=== PATIENT | male | born 1940 | race Caucasian/White ===

== ENCOUNTER 2023-01-25 15:30 | Outpatient (RCR) | payer MEDICARE ==
[~2023-01-25 15:30] MED LIST: ELIQUIS 5MG PO; LIPITOR20 MG PO; PRINZIDE 12.5 M1 TAB PO
== END 2023-01-26 | disposition home or self-care (01) ==
LOC: COL.CR
DX: Z48.812 Encounter for surgical aftercare following surgery on the circulatory system (principal); Z95.2 Presence of prosthetic heart valve

== ENCOUNTER 2024-02-28 13:20 | Inpatient (IN) | payer MEDICARE ==
[~2024-02-28] VITALS: Ht 172.7 cm; Wt 100.0 kg
[2024-02-28] MEDS ORDERED: LR 1,000 ML IV ONE (14:00)
[2024-02-28] MEDS ORDERED: Ondansetron 4 MG/2 ML VIAL IV ONE (14:00)
[2024-02-28 14:12] LABS: BASO % 0.3 % (0.0-2.0); EOS # 0.2 K/mm3 (0.0-0.7); EOS % 2.5 % (0.0-4.0); GRAN % 66.9 % (42.2-75.2); LYMPH # 1.3 K/mm3 (1.2-3.4); LYMPH % 20.9 % (20.0-51.0); MEAN CELL VOLUME 92 fl (80.0-100.0); MEAN CORPUSCULAR HEMOGLOBIN 31 pg (27-31); MEAN CORPUSCULAR HGB CONC 33 g/dl (33.0-37.0); MEAN PLATELET VOLUME 9.1 fl (7.4-10.4); MONO # 0.6 K/mm3 (0.1-0.6); MONO % 9.2 % (1.7-9.3); PLATELET COUNT 135 K/mm3 (130-400); RED BLOOD COUNT 3.91 M/mm3 (4.20-5.60); REDCELL DISTRIBUTION WIDTH-CV 13.1 % (11.5-14.5)
[2024-02-28 14:37] LABS: ALBUMIN 3.7 g/dL (3.4-4.8); BILIRUBIN,TOTAL 0.7 mg/dL (0.2-1.2); C-REACTIVE PROTEIN 0.05 mg/dL (0.00-0.50); CALCIUM 8.5 mg/dL (8.4-10.2); CREATININE, serum 0.84 mg/dL (0.72-1.25); POTASSIUM 3.5 mEq/L (3.5-4.5); TOTAL PROTEIN 6.1 g/dl (6.2-8.1)
[2024-02-28] MEDS ORDERED: Pantoprazole 40 MG in NS 10 ML IV ONE (15:00)
[2024-02-28] MEDS ORDERED: NS 1,000 ML IV ONE (15:15)
[2024-02-28] MEDS ORDERED: Iohexol 300 - 100 ML VIAL IV ONE (15:22)
[2024-02-28] MEDS ORDERED: NS 100 ML IV SCH (15:23)
[2024-02-28 16:03] LABS: URINE APPEARANCE CLOUDY (CLEAR/HAZY); URINE BLOOD 3+ (NEGATIVE); URINE COLOR RED (YELLOW); URINE GLUCOSE NEGATIVE (NEGATIVE); URINE KETONE NEGATIVE (NEGATIVE); URINE NITRATE NEGATIVE (NEGATIVE); URINE PROTEIN(semi-quant) 3+ (NEGATIVE); URINE UROBILINOGEN 0.2 E.U/dL (0.2-1.0)
[2024-02-28 16:11] LABS: COLLECTION METHOD CLEAN CATCH
[2024-02-28 16:12] LABS: SQUAMOUS EPITHELIAL 0-2 /hpf (0-10); URINE BACTERIA MODERATE /hpf (NONE SEEN); URINE RBC >50 /hpf (0-2)
[2024-02-28] MEDS ORDERED: ELIQUIS 5MG PO (16:33)
[2024-02-28] MEDS ORDERED: LEXAPRO 10MG10 MG PO (16:34)
[2024-02-28] MEDS ORDERED: LASIX 40MG TABL40 MG PO (16:34)
[2024-02-28] MEDS ORDERED: NATURE'S BLEND M3 MG PO (16:35)
[2024-02-28] MEDS ORDERED: Ondansetron 4 MG/2 ML VIAL IV PRN (16:45)
[2024-02-28] MEDS ORDERED: Acetaminophen 325 MG TAB PO PRN (16:45)
[2024-02-28] MEDS ORDERED: cefTRIAXone 1 G in Water For Injection,Sterile 10 ML IV SCH (17:00)
--- NOTE | 2024-02-28 17:40 | NUR ---
Pt arrived to room 327 from ED. Pt and family oriented to room. Completed Admissin intake and Med Rec. Pt is A&Ox4. VVS. S1S2 on tele. Clear lungs on RA. ABD round, soft, non-tender with audible bowel sounds. Pt denies pain, n/v, headache, dizziness. Pt reports hematuria and blood in stool. BLE edema, and reddened. No pain. Mepilex pad on L upper arm - abraision. No further skin integrity concerns. INT 18G L forearm. No further needs at this time. Call light in reach.
--- NOTE | 2024-02-28 17:40 | NUR ---
Pt transferred to room from ER via WC. Pt's daughter in room. A&Ox4. [place]. VSS. S1S2 on tele - paced. Clear lungs on RA. ABD round, soft, non-tender with audible bowel sounds. Palpble pulses in all extremiteis. BLE edema +1, redened. Abraision on L arm - bandaid. INT to L forearm, patent, no issues. Pt denies pain, nausea, headahce, dizziness. Call light in reach.
[2024-02-28 18:14] VITALS: BP 115/53; PULSE 63; TEMP 98
[2024-02-28 18:32] VITALS: BP_SYST 115
[2024-02-28 19:37] VITALS: BP 123/58; PULSE 66; TEMP 97.5
[2024-02-28] MEDS ORDERED: Melatonin 3 MG TAB PO SCH (21:00)
[2024-02-28 21:07] VITALS: BP_SYST 123
--- NOTE | 2024-02-28 21:07 | NUR ---
Patient resting in bed. Denies any pain or needs at this time. Assessment complete. IV in left forearm flushes easily without complications. Call light and personal items in reach. Bed in low position.
[2024-02-28 21:48] LABS: BASO % 0.2 % (0.0-2.0); EOS # 0.2 K/mm3 (0.0-0.7); EOS % 2.8 % (0.0-4.0); GRAN # 3.9 K/mm3 (1.4-6.5); GRAN % 68.3 % (42.2-75.2); HEMOGLOBIN 11.1 g/dl (13.5-18.0); LYMPH # 1.1 K/mm3 (1.2-3.4); LYMPH % 19.2 % (20.0-51.0); MEAN CELL VOLUME 94 fl (80.0-100.0); MEAN CORPUSCULAR HEMOGLOBIN 31 pg (27-31); MEAN CORPUSCULAR HGB CONC 33 g/dl (33.0-37.0); MEAN PLATELET VOLUME 9.2 fl (7.4-10.4); MONO # 0.5 K/mm3 (0.1-0.6); MONO % 9.3 % (1.7-9.3); PLATELET COUNT 118 K/mm3 (130-400); RED BLOOD COUNT 3.61 M/mm3 (4.20-5.60); REDCELL DISTRIBUTION WIDTH-CV 13.2 % (11.5-14.5)
[2024-02-28 21:50] LABS: HEMATOCRIT 33.9 % (42.0-52.0)
[2024-02-28 23:40] VITALS: BP 100/63; PULSE 60; TEMP 98.4
[2024-02-29] VITALS (12 sets, daily range): BP systolic 98–124; BP diastolic 51–69; PULSE 47–78; TEMP 97.8–98
[2024-02-29] MEDS ORDERED: NS 500 ML IV ONE (05:30)
--- NOTE | 2024-02-29 06:00 | NUR ---
Hospitalist Dewey called at 0516 and notified patients blood pressue has been steadily dropping over night and ahd recieved 2 IV bolus before coming to the floor. Last BP was 98/51. Recieved orders for 500mL fluid bolus. Patient resting in bed with no complaints. No other changes over night other than BP. Patient continues to be able to void.
[2024-02-29 06:21] LABS: BASO % 0.2 % (0.0-2.0); EOS # 0.2 K/mm3 (0.0-0.7); GRAN # 3.5 K/mm3 (1.4-6.5); GRAN % 66.8 % (42.2-75.2); LYMPH # 1.1 K/mm3 (1.2-3.4); LYMPH % 20.7 % (20.0-51.0); MEAN CELL VOLUME 93 fl (80.0-100.0); MEAN CORPUSCULAR HEMOGLOBIN 31 pg (27-31); MEAN CORPUSCULAR HGB CONC 34 g/dl (33.0-37.0); MEAN PLATELET VOLUME 9.2 fl (7.4-10.4); MONO # 0.5 K/mm3 (0.1-0.6); MONO % 9.1 % (1.7-9.3); PLATELET COUNT 110 K/mm3 (130-400); RED BLOOD COUNT 3.53 M/mm3 (4.20-5.60); REDCELL DISTRIBUTION WIDTH-CV 13.3 % (11.5-14.5)
[2024-02-29 06:27] LABS: HEMATOCRIT 32.8 % (42.0-52.0)
[2024-02-29 06:39] LABS: CREATININE, serum 0.75 mg/dL (0.72-1.25); POTASSIUM 3.8 mEq/L (3.5-4.5)
--- NOTE | 2024-02-29 06:40 | NUR ---
Pt resting in bed. Fluid bolus continues to run. No Pt needs at this time. Call light in reach.
--- NOTE | 2024-02-29 06:50 | NUR ---
Fluid bolus completed. BP: 121/51 (supine). Pt denies needs at this time. Call light in reach.
--- NOTE | 2024-02-29 08:40 | NUR ---
Pt called and stated he needed to urinate. Pt stood at side of bed and used urinal. 400cc of clear, yellow urine. Pt denied pain while urinating. No issues urinating. Pt ambulated to chair. A&O4. VSS. S1S2. BPs were in 90s overnight. Seem to improve after 500 cc bolus. Clear lungs on RA. ABD round, soft, non-tender with audible bowel sounds. Palpable pulses in all extremities with 4/5 strength. Pt denies pain, n/v, headache, dizziness. Changed linens on bed. IV in L forearm patent, no issues, INT. Pt ambulated back to bed for ECHO. Call light in reach.
[2024-02-29] MEDS ORDERED: Escitalopram 10 MG TAB PO SCH (09:00)
[2024-02-29] MEDS ORDERED: Atorvastatin 20 MG TAB PO SCH (09:00)
[2024-02-29] MEDS ORDERED: Pantoprazole 40 MG in NS 10 ML IV SCH (09:00)
[2024-02-29] MEDS ORDERED: Furosemide 40 MG/4 ML VIAL IV ONE (09:30)
--- NOTE | 2024-02-29 11:47 | NUR ---
Pt has urinated 3 times since IV lasix. Clear, light yellow urine. No blood or clots. Pt's states that he has not had his Eliquis since Tuesday (02/21). No further needs. Call light in reach and chair alarm on.
--- NOTE | 2024-02-29 13:26 | NUR ---
Supervisor Throwing Department met with patient to discuss discharge planning. Patient lives in [place] with his , Kierra (ph#[phone]) and their daughter, Paulette and her family. Patient sees Dr. Ernst for primary care and could not immediately recall the name of his pharmacy. Patient reported he does not use any DME and is independent with [facility]. Patient stated he has no DPOA-HC and is not interested in completing one at this time. Patient plans to return home at time of discharge. SW discussed OT's recommendation for Home Health and patient was unsure about this. SW contacted patient's , Kierra to discuss discharge plan and recommendation for . Kierra is agreeable to this recommendation and stated they have worked with [facility] before. JENNIFER faxed referral to [facility] for review. Discharge Plan: Home with [facility]
--- NOTE | 2024-02-29 17:14 | NUR ---
report received from AGUSTINA Cabrera at 1500, care assumed at this time. pt sitting up to chair alert and oriented x4 with at bedside. and pt with questions about care plan, awaiting Evangilidis visit at this time. pt transfer into bed x1 assist. denies pain at this time. fall precautions in place, call light within reach. will continue to monitor.
--- NOTE | 2024-02-29 17:48 | NUR ---
1735- Dr. Murrell in to see patient, spoke with Kierra over the phone, decision to move forward with bedside cystoscopy, pt aware with no further needs, questions, or concerns at this time, consent signed.
[2024-02-29] MEDS ORDERED: Lidocaine 2% (20 MG/ML) 20 ML UROJET MM ONE (18:01)
--- NOTE | 2024-02-29 22:36 | NUR ---
patient lying in bed, alert and oriented x4. denies chest pain and shortness of breath. IV in LF is patent, site is CDI. MARBELLA abrasion with dressing, BLE swelling with redness and dry flaky skin, both CDI. pt with continued hematuria with small clots noted. pt has no further needs, questions, or concerns at this time. fall precautions in place, call light within reach. will continue to monitor.
[2024-03-01] VITALS (13 sets, daily range): BP systolic 114–150; BP diastolic 61–84; PULSE 52–79; TEMP 97.5–98.3
[2024-03-01 06:34] LABS: BASO % 0.2 % (0.0-2.0); EOS # 0.2 K/mm3 (0.0-0.7); EOS % 2.9 % (0.0-4.0); GRAN # 3.5 K/mm3 (1.4-6.5); GRAN % 67.4 % (42.2-75.2); HEMOGLOBIN 11.5 g/dl (13.5-18.0); LYMPH # 1.1 K/mm3 (1.2-3.4); LYMPH % 20.8 % (20.0-51.0); MEAN CELL VOLUME 93 fl (80.0-100.0); MEAN CORPUSCULAR HEMOGLOBIN 31 pg (27-31); MEAN CORPUSCULAR HGB CONC 34 g/dl (33.0-37.0); MEAN PLATELET VOLUME 9.2 fl (7.4-10.4); MONO # 0.4 K/mm3 (0.1-0.6); MONO % 8.5 % (1.7-9.3); PLATELET COUNT 102 K/mm3 (130-400); RED BLOOD COUNT 3.69 M/mm3 (4.20-5.60); REDCELL DISTRIBUTION WIDTH-CV 13.3 % (11.5-14.5)
[2024-03-01 06:36] LABS: HEMATOCRIT 34.3 % (42.0-52.0)
[2024-03-01 06:43] LABS: CALCIUM 8.2 mg/dL (8.4-10.2); CREATININE, serum 0.73 mg/dL (0.72-1.25); POTASSIUM 3.7 mEq/L (3.5-4.5)
--- NOTE | 2024-03-01 11:06 | NUR ---
PT RESTING IN BED, ALERT AND ORIENTEDX3. NO COMPLAINTS OF PAIN AT THIS TIME. PT REPORTS THAT HE HAS NOT HAD BLOODY URINE TODAY. ASSESSED AND GAVE MORNING MEDS. IS AT BEDSIDE. TALKED TO ABOUT PLAN OF CARE. FOUDN SKIN TEAR ON PT RIGHT CALF. PUT MEPILEX ON IT. PT LOWER LEGS HAVE +1 EDEMA. NO OTHER COMPLAINTS AT THIS TIME. CALL LIGHT WITHIN REACH.
--- NOTE | 2024-03-01 11:27 | NUR ---
PT HAD 350 ML OUT OF HEMATURIA. PT STATES THERE IS NO PAIN WHILE URINATING.
[2024-03-01] MEDS ORDERED: Furosemide 100 MG/10 ML VIAL IV ONE (12:15)
--- NOTE | 2024-03-01 16:37 | NUR ---
PT HAS VOIDED MULTIPLE TIMES TODAY. URINE IS LIGHT PINK NOW.
[2024-03-02 00:17] VITALS: BP_SYST 150
--- NOTE | 2024-03-02 01:09 | NUR ---
PT VOIDED 400 ML DARK TEA COLORED URINE, NO CLOTS PRESENT
[2024-03-02 03:33] VITALS: BP 137/77; PULSE 70; TEMP 97.5
[2024-03-02 03:53] VITALS: BP_SYST 137
[2024-03-02 06:19] LABS: BASO % 0.2 % (0.0-2.0); EOS # 0.2 K/mm3 (0.0-0.7); EOS % 3.4 % (0.0-4.0); GRAN # 3.4 K/mm3 (1.4-6.5); GRAN % 67.1 % (42.2-75.2); HEMOGLOBIN 11.7 g/dl (13.5-18.0); LYMPH % 20.6 % (20.0-51.0); MEAN CELL VOLUME 92 fl (80.0-100.0); MEAN CORPUSCULAR HEMOGLOBIN 30 pg (27-31); MEAN CORPUSCULAR HGB CONC 33 g/dl (33.0-37.0); MEAN PLATELET VOLUME 9.1 fl (7.4-10.4); MONO # 0.4 K/mm3 (0.1-0.6); MONO % 8.5 % (1.7-9.3); PLATELET COUNT 118 K/mm3 (130-400); RED BLOOD COUNT 3.88 M/mm3 (4.20-5.60); REDCELL DISTRIBUTION WIDTH-CV 13.5 % (11.5-14.5)
[2024-03-02 06:23] LABS: HEMATOCRIT 35.7 % (42.0-52.0)
[2024-03-02 06:39] LABS: CALCIUM 8.4 mg/dL (8.4-10.2); CREATININE, serum 0.75 mg/dL (0.72-1.25); POTASSIUM 3.7 mEq/L (3.5-4.5)
[2024-03-02 08:00] VITALS: BP 139/85; PULSE 86; TEMP 97.9
--- NOTE | 2024-03-02 08:00 | NUR ---
PATIENT IS ORIENTED X2, NOTED OCCATIONAL CONFUSION/FORGETFULNESS. PATIENT HAS HX OF DEMENTIA AND LIVES AT HOME WITH . VSS. NO COMPLAINTS OF PAIN OR NAUSEA. LEFT FORARM IV TO INT. GAVE AM MEDS. DC'D IV SITE DUE TO PENDING DISCHARGE. PATIENT IS EAT/DRINK/VOIDING SUFFICENT AMOUNTS. URINE IS CEM WITH NO CLOTS. HEAD TO TOE ASSESSMENT COMPLETE. SCD'S TO BLE. CALL LIGHT IN REACH. BED ALARM ON.
[2024-03-02] MEDS ORDERED: LASIX 40MG TABL40 MG PO (08:19)
--- NOTE | 2024-03-02 09:13 | NUR ---
special delivery worker attended interdisciplinary clinical rounding with Dr. Abraham. Patient is medically ready for discharge. SW met with patient to review the important message from Medicare. Patient understands this form and has no questions or concerns at this time. Patient was unable to sign form with the pain in his hand. Patient provided verbal consent. SW made copy, placed original in chart and provided copy to patient. Patient stated his , Kierra, will be picking him up around 10 am. SW contacted Kierra, patient's , and reviewed the discharge plan with her. Kierra understood and explained she would be able to garbage pick up man patient at 10 am. SW reviewed the important message from Medicare with Kierra whom expressed she understood and had no questions or concerns. SW faxed discharge orders and clinical updates to [facility]. Discharge plan: Home with [facility]
--- NOTE | 2024-03-02 10:35 | NUR ---
PATIENT IS DISCHARGING HOME. GAVE DISCHARGE INSTRUCTIONS, E-SCRIPT SENT, AND DISCUSSED F/U APT. ANSWERED QUESTIONS/CONCERNS. IV DC'D THIS AM. TELE NO DC'D. PATIENT IS DRESSED, PACKED PERSONAL BELONGINGS, AND ESCORTED TO PERSONAL VEHICLE VIA WC. PATIENT DISCHARGED.
== END 2024-03-02 10:35 | disposition home health service (06) | DRG 696 ==
LOC: COL.ER 13:20 → SURG 15:13
PROVIDERS: Family Medicine; Physician Assistant; ADMIT Internal Medicine
PROC: 0TJB8ZZ Inspection of Bladder, Via Natural or Artificial Opening Endoscopic (ICD-10-PCS; principal; 2024-02-28)
DX: R31.0 Gross hematuria (principal); D62 Acute posthemorrhagic anemia; N40.0 Benign prostatic hyperplasia without lower urinary tract symptoms; M79.89 Other specified soft tissue disorders; I10 Essential (primary) hypertension; Z86.73 Personal history of transient ischemic attack (TIA), and cerebral infarction without residual deficits; E78.5 Hyperlipidemia, unspecified; I48.91 Unspecified atrial fibrillation; Z95.0 Presence of cardiac pacemaker; F32.A Depression, unspecified
CPT/HCPCS: C1769; J0696; J1940; J2405; J2470; J7030; J7040; J7120; Q9967